=== PATIENT | male | born 1960 | race Caucasian/White ===

== ENCOUNTER 2017-07-27 09:38 | Emergency (ER) | payer OTHER ==
[~2017-07-27] VITALS: Ht 170.2 cm; Wt 99.0 kg
[~2017-07-27 09:38] MED LIST: FENO145T25 PO; GLIM4TAB55 PO; HYDR25TA6 PO; LISI10TA2 PO; MTF1000T PO
[2017-07-27 09:41] VITALS: Ht 170.2 cm; Wt 99.0 kg
[2017-07-27] MEDS ORDERED: ACETAMINOPHEN 325 MG TAB PO ONE (10:30)
--- NOTE | 2017-07-27 11:12 | RADRPT ---
PROCEDURE: XR Chest. CLINICAL INDICATION: Cough . Fever. TECHNIQUE: Single frontal chest x-ray. COMPARISON: None. FINDINGS: The lungs are clear of acute infiltrates, edema, effusions, or masses.. The cardiomediastinal silho uette is unremarkable. The osseous structures are intact. IMPRESSION: No acute cardiopulmonary disease. RPTAT: QQ .Spencer Myers MD, MD Date Time Electronically viewed and signed by .Spencer Myers MD, MD on 07/27/2017 11:12 .L/
[2017-07-27] MEDS ORDERED: ACET500C5 PO (11:47)
[2017-07-27] MEDS ORDERED: OSLT75C PO (11:47)
[2017-07-27] MEDS ORDERED: D-ME473S2 PO (11:47)
--- NOTE | 2017-07-27 11:50 | ERD ---
ER Documentation Chief Complaint Chief Complaint cough x 2 days and fever since yesterday HPI This 57-year-old male presents with fever and cough since yesterday. He also has body aches. He has no vomiting, abdominal pain, diarrhea, chest pain, urinary complaints. ROS All systems reviewed and are negative except as per history of present illness. Medications Home Meds Active Scripts Dextromethorphan Hb-Promethazine Hcl* (Promethazine DM* Syrup) 473 Ml Syrup, 5 ML PO Q6 Y for COUGH for 4 Days, ML Prov:XU HUIZAR MD 07/27/17 Oseltamivir Phosphate* (Tamiflu*) 75 Mg Capsule, 75 MG PO BID for 5 Days, CAP Prov:XU HUIZAR MD 07/27/17 Acetaminophen* (Tylophen*) 500 Mg Capsule, 1 CAP PO Q6H Y for PAIN AND OR ELEVATED TEMP, #20 CAP Prov:XU HUIZAR MD 07/27/17 Reported Medications Fenofibrate Nanocrystallized* (Tricor*) 145 Mg Tablet, PO DAILY 10/17/12 Metformin* (Glucophage*) 1,000 Mg Tablet, PO BID 10/17/12 Glimepiride* (Amaryl*) 4 Mg Tablet, PO DAILY 10/17/12 Hydrochlorothiazide (Hydrochlorothiazide) 25 Mg Tablet, PO QAM 10/17/12 Lisinopril* (Lisinopril*) 10 Mg Tablet, PO DAILY 10/17/12 Allergies Allergies: Coded Allergies: No Known Allergy (Unverified , 10/17/12) PMhx/Soc History of Surgery: No Anesthesia Reaction: No Hx Neurological Disorder: No Hx Respiratory Disorders: No Hx Cardiac Disorders: Yes (HTN, cholesterol) Hx Psychiatric Problems: No Hx Alcohol Use: Yes (OCCASIONALLY 2-3 BOTTLES BEER) Hx Substance Use: No Hx Tobacco Use: Yes (FORMER SMOKER - 2 YEARS AGO.) Smoking Status: Former smoker Physical Exam Vitals Vital Signs Date Time Temp Pulse Resp B/P Pulse Ox O2 Delivery O2 Flow Rate FiO2 07/27/17 09:41 101.6 108 20 149/96 97 Physical Exam Const: [] There are, [id number]. Head: Atraumatic Eyes: Normal Conjunctiva ENT: Normal External Ears, Nose and Mouth. TMs and oropharynx normal. Neck: Full range of motion..~ No meningismus. Resp: Clear to auscultation bilaterally Cardio: Regular rate and rhythm, no murmurs Abd: Soft, non tender, non distended. Normal bowel sounds Skin: No petechiae or rashes Back: No midline or flank tenderness Ext: No cyanosis, or edema Neur: Awake and alert Psych: Normal Mood and Affect Results 24 hrs Laboratory Tests Test 07/27/17 11:09 Bedside Glucose 101mg/dL Current Medications Medications (Trade) Dose Ordered Sig/Randy Route PRN Reason Start Time Stop Time Status Last Admin Dose Admin Acetaminophen (Tylenol Tab) 650 mg ONCE ONCE PO 07/27/17 10:30 07/27/17 10:31 DC 07/27/17 10:30 Procedures/MDM Chest X-ray 1V Interpreted by me: Soft Tissue: No acute abnormalities Bones: No acute abnormalities Mediastinum/Cardiac Silhouette/Lungs: [No acute abnormalities] impression- normal 1 view chest x-ray Accu-Chek is normal. Resents with febrile illness, myalgias and her symptoms for 1 day. Likely has influenza. He will be treated with Tylenol, Tamiflu, promethazine, primary care follow-up and return precautions. Is no evidence of respiratory distress or hypoxemia. The patient was stable with no new complaints during the ER course. Clinically, there is no current evidence to suggest meningitis, sepsis, acute abdomen, pneumonia, acute coronary syndrome, pulmonary embolism, or any other emergent condition appearing to require further evaluation or hospitalization. The patient should certainly return for any new or worsening symptoms per the aftercare instructions. They should otherwise follow-up with her primary care doctor for reevaluation this week. Departure Diagnosis: Primary Impression: Fever Fever type: unspecified Qualified Code: R50.9 - Fever, unspecified fever cause Additional Impression: Cough Condition: Stable Patient Instructions: Fever Control (Adult), Influenza (Adult) Additional Instructions: X-ray normal. Probablamente un virus que dura 2-4 harden. cheque otro vez en el proximo sahil para mas simptomas- vomito, dolor, renetta, problemas con respirando , o con naranjo doctor primario. XU HUIZAR MD Jul 27, 2017 11:50
== END 2017-07-27 12:12 | disposition home or self-care (01) ==
LOC: FTE 09:38
DX: R50.9 Fever, unspecified (principal); I10 Essential (primary) hypertension; Z87.891 Personal history of nicotine dependence
CPT/HCPCS: 71010; 82962

== ENCOUNTER 2018-03-18 06:17 | Day surgery (SDC) | END 2018-03-18 10:50 | disposition home or self-care (01) ==